=== PATIENT | male | born 1975 | race Caucasian/White ===

== ENCOUNTER 2018-05-15 17:58 | Emergency (ER) | payer OTHER ==
[~2018-05-15] VITALS: Ht 172.7 cm; Wt 88.6 kg
[2018-05-15 18:00] VITALS: Ht 172.7 cm; Wt 88.6 kg
[2018-05-15] MEDS ORDERED: ADDERALL 30 MG30 MG PO (18:02)
[2018-05-15] MEDS ORDERED: AXIRON30 MG/1.5 TP (18:03)
[2018-05-15 18:24] LABS: BASOPHILS 0 % (0-2); HEMATOCRIT 45.9 % (42.0-54.0); HEMOGLOBIN 16.2 g/dL (13.5-17.5); IMMATURE GRANULOCYTES 0.5 % (0-5); LYMPHOCYTES 23.3 % (15-50); MCH 28.6 pg (26.0-34.0); MCHC 35.3 g/dL (31.0-37.0); MEAN PLATELET VOLUME 9.6 fL (7.4-10.4); MONOCYTES 10.8 % (2-11); NEUTROPHILS 64.4 % (40-80); PLATELET COUNT 170 10x3/uL (130-400); RBC 5.67 10x6/uL (4.20-6.10); RDW 16.2 % (11.5-14.5); WBC 4.1 10x3/uL (4.8-10.8)
[2018-05-15 19:06] LABS: ALBUMIN 3.9 g/dL (3.4-5.0); ALKALINE PHOSPHATASE 37 U/L (46-116); ALT (SGPT) 42 U/L (10-68); BILIRUBIN - TOTAL 0.77 mg/dL (0.2-1.3); CALC OSMOLALITY 282 mosm/kg (275-300); CHLORIDE - SERUM 103 mmol/L (98-107); CREATININE - SERUM 1.2 mg/dL (0.6-1.3); GLUCOSE 108 mg/dL (74-106); POTASSIUM - SERUM 4.1 mmol/L (3.5-5.1); PROTEIN - SERUM 8.1 g/dL (6.4-8.2); SODIUM 141 mmol/L (136-145); UREA NITROGEN 15 mg/dL (7-18); eGFR NON AFRICAN AMERICAN 71 mL/min (90-120)
[2018-05-15 19:18] LABS: CKMB 1.3 U/L (0.0-3.6); CREATINE KINASE 94 UL (21-232); TROPONIN-I < 0.017 ng/mL (0.000-0.060)
[2018-05-15] MEDS ORDERED: TORADOL10 MG PO (20:56)
[2018-05-15 21:15] VITALS: BP 120/82
== END 2018-05-15 21:15 | disposition home or self-care (01) ==
LOC: D.ER 17:58
PROVIDERS: Family Medicine
DX: R07.89 Other chest pain (principal)